=== PATIENT | female | born 1985 | race Two or more races ===

== ENCOUNTER 2017-10-19 09:10 | Emergency (ER) | payer OTHER ==
[~2017-10-19] VITALS: Ht 170.2 cm; Wt 111.2 kg
[2017-10-19 09:30] VITALS: BP 145/94
[2017-10-19] MEDS ORDERED: IBUPROFEN 200 MG TABLET ONE (12:22)
[2017-10-19] MEDS ORDERED: IBUPROFEN 200 MG TABLET PO ONE (12:30)
== END 2017-10-19 12:59 | disposition home or self-care (01) ==
LOC: ED 12:45
DX: S63.502A Unspecified sprain of left wrist, initial encounter (principal); X58.XXXA Exposure to other specified factors, initial encounter; Y93.89 Activity, other specified; Y99.8 Other external cause status; Y92.89 Other specified places as the place of occurrence of the external cause
CPT/HCPCS: 29125; 36415; 71046; 72020; 72050; 84703

== ENCOUNTER 2019-03-01 12:48 | Emergency (ER) | payer MEDICAID ==
[~2019-03-01] VITALS: Ht 165.1 cm; Wt 98.6 kg
--- NOTE | 2019-03-01 12:58 | NUR ---
NO ANSWER AT 1255.
[2019-03-01 13:44] LABS: BASOPHILS # (AUTO) 0.04 x10^3/uL (0-0.1); BASOPHILS % (AUTO) 0 % (0-1); EOSINOPHILS # (AUTO) 0.11 x10^3/uL (0-0.4); EOSINOPHILS % (AUTO) 1 % (1-7); LYMPHOCYTES % (AUTO) 22 % (22-44); MD NO; MEAN CORPUSCULAR HEMOGLOBIN 28.1 pg (27.0-34.8); MEAN CORPUSCULAR HGB CONC 32.2 g/dL (32.4-35.8); MEAN CORPUSCULAR VOLUME 87.4 fL (80-100); MEAN PLATELET VOLUME 8.2 fL (7.4-10.4); MONOCYTES # (AUTO) 0.63 x10^3/uL (0.2-0.8); MONOCYTES % (AUTO) 7 % (2-9); NEUTROPHILS # (AUTO) 6.71 x10^3/uL (1.8-6.8); NEUTROPHILS % (AUTO) 70 % (42-75); PLATELET COUNT 524 x10^3/uL (130-400); RED CELL DISTRIBUTION WIDTH 19.7 % (9.6-15.2)
[2019-03-01 13:52] LABS: ALANINE AMINOTRANSFERASE 18 U/L (12-78); ALBUMIN 3.4 g/dL (3.4-5.0); ANION GAP 6 mmol/L (5-15); CALCIUM 8.4 mg/dL (8.5-10.1); CHLORIDE 108 mmol/L (98-107)
--- NOTE | 2019-03-01 13:55 | NUR ---
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
[2019-03-01 13:57] LABS: ALKALINE PHOSPHATASE 90 U/L (45-117); BILIRUBIN,TOTAL 0.2 mg/dL (0.2-1.0); CREATININE 0.96 mg/dL (0.55-1.02); TOTAL PROTEIN 7.7 g/dL (6.4-8.2)
[2019-03-01 14:33] LABS: MICROSCOPIC INDICATED
[2019-03-01 14:34] LABS: CULTURE INDICATED? YES
[2019-03-01 16:01] VITALS: BP 124/67
== END 2019-03-01 16:03 | disposition home or self-care (01) ==
LOC: ED 15:56
DX: N30.00 Acute cystitis without hematuria (principal); R10.32 Left lower quadrant pain
CPT/HCPCS: 36415; 76830; 80053; 81001; 84703; 85025; 87077; 87086; 87186; 99284